=== PATIENT | female | born 1960 | race Caucasian/White ===

== ENCOUNTER 2016-11-23 11:56 | Emergency (ER) | payer MEDICARE ==
--- NOTE | 2016-11-23 13:52 | UC ---
Lower Extremity/Ankle HPI - HPI Summary HPI Summary: pain right ankle for the last 2 days. Progressive. Hurts so bad at night in bed she can't stand it. CAn't even bear the weight of the sheet on the ankle. Redness and heat at times. Limping gait. She does recall falling a week or so ago, tripped and fell. Ankle didn't start hurting right away, but perhaps 4 or 5 days after the injury. No prior history of similar pain. No history of arthritis. No prior fracture of this ankle/ No fever or vomiting. - History of Current Complaint Chief Complaint: UCLowerExtremity Stated Complaint: RIGHT FOOT PAIN Time Seen by Provider: 11/23/16 13:17 Hx Obtained From: Patient Hx Last Menstrual Period: hysterectomy Onset/Duration: Gradual Onset, Lasting Days - 2 Severity Initially: Mild Severity Currently: Moderate Aggravating Factor(s): Ambulation Alleviating Factor(s): Nothing Able to Bear Weight: Yes - limping - Risk Factors Gout Risk Factors: Age Over 40 DVT Risk Factors: Negative Septic Arthritis Risk Factor: Negative - Allergies/Home Medications Allergies/Adverse Reactions: Allergies Allergy/AdvReac Type Severity Reaction Status Date / Time Ciprofloxacin [From Cipro] Allergy GI Upset Verified 11/23/16 13:21 Levofloxacin [From Levaquin] Allergy Hives/Diff. Verified 11/23/16 13:21 Breathing/I tching Metronidazole [From Flagyl] Allergy Hives Verified 11/23/16 13:21 Penicillins Allergy Difficulty Verified 11/23/16 13:21 Breathing Sulfamethoxazole Allergy Hives Verified 11/23/16 13:21 w/Trimethoprim [From Bactrim] PMH/Surg Hx/FS Hx/Imm Hx Endocrine History Of: Reports: Thyroid Disease Denies: Diabetes Cardiovascular History Of: Denies: Hypertension, Pacemaker/ICD Respiratory History Of: Reports: Asthma GI/ History Of: Denies: Renal Disease Cancer History Of: Denies: Breast Cancer - Surgical History Surgical History: Yes Surgery Procedure, Year, and Place: 6 FOOT SURGERIES LEFT (CLUB FOOT); HYSTERECTOMY; LT KNEE; LT SHOULDER; CERVICAL SPINE; BLADDER/INTESTINAL ADHESIONS X2; LT LOWER LEG RODDING, colon resection. ULNAR TRANSPLANT. LYMPH NODE RIGHT NECK REMOVE. ESOPHIGIEAL STRETCHING - Family History Known Family History: Positive: Cardiac Disease, Hypertension, Diabetes - Social History Occupation: Employed Full-time Lives: With Family Alcohol Use: None Substance Use Type: None Smoking Status (MU): Never Smoked Tobacco Have You Smoked in the Last Year: No Review of Systems Constitutional: Negative Skin: Negative Eyes: Negative ENT: Negative Respiratory: Negative Cardiovascular: Negative Gastrointestinal: Negative Genitourinary: Negative Motor: Negative Neurovascular: Negative Musculoskeletal: Negative, Arthralgia - right ankle, Decreased ROM, Edema Neurological: Negative Psychological: Negative All Other Systems Reviewed And Are Negative: Yes Physical Exam Triage Information Reviewed: Yes Appearance: Well-Appearing, No Pain Distress, Well-Nourished Vital Signs: Initial Vital Signs Temp 98.4 F 11/23/16 13:22 Pulse 72 11/23/16 13:22 Resp 16 11/23/16 13:22 BP 131/70 11/23/16 13:22 Pulse Ox 99 11/23/16 13:22 Vital Signs Reviewed: Yes Eye Exam: Normal ENT Exam: Normal Dental Exam: Normal Neck exam: Normal Neck: Positive: 1 Respiratory Exam: Normal Cardiovascular Exam: Normal Musculoskeletal Exam: Other - moderate tenderness to palpation of right lateral malleolus around ankle joint. Mild diffuse swelling, increased warmth. No rash. Strong DP and ankle pulses. Passive ROM at ankle is painful. Neurological Exam: Normal Psychological Exam: Normal Skin Exam: Normal Diagnostics - Laboratory Diagnostic Studies Completed/Ordered: ankle xrays neg Lower Extremity Course/Dx - Differential Dx/Diagnosis Differential Diagnosis/HQI/PQRI: Fracture (Closed), Strain, Tendonitis Provider Diagnoses: ankle tendinitis Discharge - Discharge Plan Condition: Stable Disposition: HOME Prescriptions: Meloxicam [Mobic] 15 mg PO DAILY PRN #30 tab PRN Reason: ankle pain Patient Education Materials: Tendinitis (ED) Referrals: Navid Rodgers MD [Primary Care Provider] -
[2016-11-23 14:00] VITALS: BP 131/70
--- NOTE | 2016-11-23 14:08 | RAD ---
INDICATION: Right ankle pain COMPARISON: None TECHNIQUE: AP, lateral, and oblique views were obtained. FINDINGS: There is no acute fracture or dislocation. There is lateral soft tissue swelling. IMPRESSION: LATERAL SOFT TISSUE SWELLING. NO ACUTE FRACTURE.
== END 2016-11-23 14:27 | disposition home or self-care (01) ==
LOC: UCCORT 11:56
DX: M77.9 Enthesopathy, unspecified (principal); M25.571 Pain in right ankle and joints of right foot; Z88.1 Allergy status to other antibiotic agents; Z88.0 Allergy status to penicillin; Z88.2 Allergy status to sulfonamides
CPT/HCPCS: 99212; G0463

== ENCOUNTER 2018-02-14 12:24 | Emergency (ER) | payer MEDICARE ==
--- NOTE | 2018-02-14 12:30 | UC ---
Upper Extremity HPI - HPI Summary HPI Summary: 57 y/o female presents to the urgent care c/o numbness and tingling over the left 1st and 2nd fingers for the past 2 weeks. Pt also stated mild neck and upper back pain specially while sleeping. Pt reports Hx of DDD of neck and back. Hx of herniated cervical disc C-4, C-5 s/p surgery in 2011. However, lately she hasn't been able to sleep due to the numbness. If she lays on her RT side the numbness is worse. Pain is 6/10. Pt has taking tylenol PM to be able to sleep and alleviate symptoms. Pt denies fever, SOB, chest pain, dizziness, abdominal pain, N/V/D. Hx of hysterectomy at age 20. - History of Current Complaint Stated Complaint: hand and arm numbness Time Seen by Provider: 02/14/18 12:28 Hx Obtained From: Patient Hx Last Menstrual Period: hysterectomy Onset/Duration: Gradual Onset, Lasting Weeks - 2 weeks, Still Present, Worse Since - 2 days Severity Initially: Mild Severity Currently: Moderate Pain Intensity: 6 Pain Scale Used: 0-10 Numeric Location Of Pain: Is Discrete @ - numbness and tinglin over the LF thumb and index finger Character: Dull, Spasmodic Aggravating Factor(s): Movement, Lifting Alleviating Factor(s): OTC Meds, Rest Associated Signs And Symptoms: Positive: Numbness/Tingling - left index and thumb. Negative: Swelling, Redness, Bruising, Fever Related History: Dominant Hand Right - Risk Factors Non-Orthopedic Risk Factor: Negative DVT Risk Factors: Negative Septic Arthritis Risk Factor: Negative - Allergies/Home Medications Allergies/Adverse Reactions: Allergies Allergy/AdvReac Type Severity Reaction Status Date / Time ciprofloxacin Allergy GI Upset Verified 02/14/18 12:42 levofloxacin Allergy Hives/Diff. Verified 02/14/18 12:42 Breathing/I tching metronidazole Allergy Hives Verified 02/14/18 12:42 Penicillins Allergy Difficulty Verified 02/14/18 12:42 Breathing sulfamethoxazole Allergy Hives Verified 02/14/18 12:42 [From Bactrim] trimethoprim [From Bactrim] Allergy Hives Verified 02/14/18 12:42 PMH/Surg Hx/FS Hx/Imm Hx Previously Healthy: Yes Endocrine History: Hypothyroidism Other Endocrine History: Thalassemia Other Neurological History: Degenerative Disc disease of neck and back - Surgical History Surgical History: Yes Surgery Procedure, Year, and Place: 6 FOOT SURGERIES LEFT (CLUB FOOT); HYSTERECTOMY; LT KNEE; LT SHOULDER; CERVICAL SPINE; BLADDER/INTESTINAL ADHESIONS X2; LT LOWER LEG RODDING, colon resection. ULNAR TRANSPLANT. LYMPH NODE RIGHT NECK REMOVE. ESOPHIGIEAL STRETCHING - Family History Known Family History: Positive: Cardiac Disease, Hypertension, Diabetes - Social History Occupation: Retired Lives: With Family Alcohol Use: None Substance Use Type: None Smoking Status (MU): Never Smoked Tobacco Have You Smoked in the Last Year: No Review of Systems Constitutional: Negative Skin: Negative Eyes: Negative ENT: Negative Respiratory: Negative Cardiovascular: Negative Gastrointestinal: Negative Genitourinary: Negative Motor: Negative Musculoskeletal: Decreased ROM - left arm, Other: - left muild neck pain and upper bavck pain Neurological: Headache, Numbness - left index and thumb Is Patient Immunocompromised?: No All Other Systems Reviewed And Are Negative: Yes Physical Exam - Summary Physical Exam Summary: Vital signs:reviewed General: Patient is a well developed female without any distress that is sitting comfortably in the examining table w/o any apparent distress. Skin: [place], warm, dry HEAD AND FACE: No signs of trauma. EYES: PERRLA, EOMI x 2. EARS: Hearing grossly intact. MOUTH: Oropharynx within normal limits. NECK: Supple, trachea is midline, no cervical lymphadenopathy, no JVD, no carotid bruit, no c-spine tenderness, neck with decrease ROM left lateral bending due to pain. No meningeal signs, no Kernig's or brudzinskis signs. left trapezium muscle spasm Decrease ROM on bending forward and Rt lateral bending due to pain. CHEST: Symmetric, no tenderness at palpation LUNGS: CTA bilaterally, no rales, rhonchi or wheezing CVS: RRR, no murmur, rub, or gallop ABDOMEN: soft and Nontender without masses, no guarding or rebound. Bowel sounds are active. No Hepato-splenomegaly. No signs of inguinal hernias. BACK: Patient walked into the urgent care room with symmetric ambulation, No signs of limping, antalgic, able to bear weight. No signs of trauma, no soft tissue or muscle tenderness, RT side upper back spasm in the Paraspinal muscles of the T1-T2. No masses palpated. Point tenderness at LF shoulder blade, no swelling or ecchymosis observed, No CVAT, no flank ecchymosis . No sacroiliac notch tenderness, No saddle anesthesia.FROM: flexion/ extension/ lateral bending and rotation, note if limited or causes pain Straight Leg Raise: negative.Patellar reflexes: brisk, symmetric Muscle strength lower extremities. Dorsiflexion/ plantar flexion of ankles. Heel/ toe walk. Left phalanx FROM, strnegth intant and decrease sensation on left 1st and 2nd phalanx, pulses anre intact w/ brisk capillary refill. Lower extremities: Femoral, popliteal, posterior tibial, and dorsalis pedis pulses with in normal, Neurological: WNL Psychological: WNL Skin: dry and warm Triage Information Reviewed: Yes Upper Extremity Course/Dx - Course Course Of Treatment: 57 y/o female presents to the urgent care c/o numbness and tingling over the left 1st and 2nd fingers for the past 2 weeks. Pt also stated mild neck and upper back pain specially while sleeping. Pt reports Hx of DDD of neck and back. Hx of herniated cervical disc C-4, C-5 s/p surgery in 2011. However, lately she hasn't been able to sleep due to the numbness. If she lays on her RT side the numbness is worse. Pain is 6/10. Pt has taking tylenol PM to be able to sleep and alleviate symptoms. Pt denies fever, SOB, chest pain, dizziness, abdominal pain, N/V/D. Hx of hysterectomy at age 20. Hx obtained. Pt w/ a Neck spasm in Left side w/ mild paresthesia on left 1st and 2nd phalanx on examination. Neck X-ray and Thoracic spine X-ray ordered. Impression: Stable postsurgical at level C4-C5 w/ multiple levels of Degenerative Disc Disease of the cervical and thoracic Spine. Pt Rx Medrol dose aric, Naproxen PO, flexeril PO and given a Orthopedic Dr Johnson referral. Pt given Narpoxen PO at the clinic. Pt tolerated well medication and pain decrease. Pt's shulder immobilized w/ shoulder sling for 2-3 days to alleviate symptoms. Patient was instructed to f/u with orthopedic in 1 week if symptoms do not improve or worsen. Patient understands and agrees. Pt's BP is elevated today advised to decrease salt in diet, monitor BP and f/u with PCP for further management. Plan of care was discussed with the patient and patient understands and agrees. All questions were answered at patient satisfaction. Pt left clinic hemodynamically stable. - Differential Dx/Diagnosis Differential Diagnosis/HQI/PQRI: Arthritis, Fracture (Closed), Strain, Sprain, Other - Degenerative disc disease Provider Diagnoses: 1- Neck pain. 2- Degenerative disc disease of neck and upper back. 3- Neck Muscle spasm. 4-paresthesia of 1st and 2nd thumb. 5- Elevated BP w/o Hx of HTN Discharge - Sign-Out/Discharge Documenting (check all that apply): Discharge - Discharge Plan Condition: Stable Disposition: HOME Prescriptions: Cyclobenzaprine TAB* [Flexeril 10 MG TAB*] 10 mg PO TID PRN #15 tab PRN Reason: Spasms - Neck methylPREDNISolone [Medrol Dosepak 4 MG*] 4 mg PO .SEE ARIC INSTRUCTION #1 aric Naproxen TAB* [Naprosyn 250 mg TAB*] 250 mg PO Q8H PRN #30 tab PRN Reason: Pain Patient Education Materials: Low-Sodium Diet (ED), Muscle Spasm (ED), Degenerative Disc Disease (ED), Neck Pain (ED) Referrals: Jair Johnson MD [Medical Doctor] - 1 Week Navid Rodgers MD [Primary Care Provider] - 1 Week Additional Instructions: 1- Please take Naproxen PO as directed after meals for pain. Take Medrol dose aric as directed to alleviate symptoms. 2- Take Flexeril PO as directed for muscle spasm. Please do not drive while taking the medication. 3- Please follow up with Orthopedic Dr Johnson or your PCP in 1 week for further management. 4-Your BP is elevated today. please decrease salt in your diet, monitor BP and if it continues to be elevated please f/u with your PCP for further management - Billing Disposition and Condition Condition: STABLE Disposition: HOME
[2018-02-14 12:40] VITALS: BP 143/85
[2018-02-14] MEDS ORDERED: Naproxen TAB* 250 MG PO ONE (12:55)
--- NOTE | 2018-02-14 13:42 | RAD ---
INDICATION: Neck and upper back pain with numbness and tingling over the left fingers. COMPARISON: Radiograph of the cervical spine dated October 04, 2014 TECHNIQUE: 5 views of the cervical spine and 3 views of the thoracic spine were obtained. FINDINGS: Stable postsurgical findings include anterior cervical body fusion at C4/C5. There is straightening of the normal cervical lordosis. There is loss of intervertebral disc height at multiple levels. On the oblique views there is bony narrowing of the no foramen appearing worse on the right than the left. The dens is intact. There is no precervical soft tissue swelling. Degenerative changes of the thoracic spine on the lateral view radiograph include loss of intervertebral disc height and anterior osteophyte formation. There is very slight degree of dextroconvex curvature at the mid-level thoracic spine. The vertebral bodies otherwise appear to be intact and adequately aligned. IMPRESSION: Stable postsurgical and degenerative changes as described above. If the patient's symptoms persist, follow-up imaging is recommended.
== END 2018-02-14 14:15 | disposition home or self-care (01) ==
LOC: UCEAST 12:24
DX: M50.30 Other cervical disc degeneration, unspecified cervical region (principal); M51.34 Other intervertebral disc degeneration, thoracic region; M62.838 Other muscle spasm; R20.2 Paresthesia of skin; R03.0 Elevated blood-pressure reading, without diagnosis of hypertension; E03.9 Hypothyroidism, unspecified; D56.9 Thalassemia, unspecified; Z88.1 Allergy status to other antibiotic agents; Z88.0 Allergy status to penicillin; Z88.2 Allergy status to sulfonamides
CPT/HCPCS: 72050; 72070; 99213; A9270-GY; G0463